=== PATIENT | female | born 1990 ===

== ENCOUNTER 2020-03-23 23:46 | Outpatient (CLI) | payer SELFPAY ==
[2020-03-24] MEDS ORDERED: ePHEDrine SULFATE 50 MG/1 ML INJ IV PRN (03:24)
[2020-03-24] MEDS ORDERED: ONDANSETRON 4 MG/2 ML INJ IV PRN (03:24)
[2020-03-24] MEDS ORDERED: ACETAMINOPHEN 325 MG TAB PO PRN (03:24)
[2020-03-24] MEDS ORDERED: BUTORPHANOL 2 MG/1 ML INJ IV PRN (03:24)
[2020-03-24] MEDS ORDERED: LIDOCAINE (2%) 20 MG/1 ML VIAL 20 ML MDV INFILTRATI ONE (03:24)
[2020-03-24] MEDS ORDERED: MINERAL OIL 30 ML ORAL LIQD PO PRN (03:24)
[2020-03-24] MEDS ORDERED: TERBUTALINE 1 MG/1 ML INJ SUB-Q PRN (03:24)
[2020-03-24] MEDS ORDERED: OXYTOCIN 20 UNIT/1000ML DRIP 20 UNITS/1,000 ML BAG IV SCH (04:00)
[2020-03-24] MEDS ORDERED: OXYTOCIN DRIP 30 UNITS/500 ML BAG IV SCH (04:00)
[2020-03-24 04:05] LABS: Hematocrit 35.1 % (30.3-42.9); Hemoglobin 12.1 gm/dl (10.1-14.3); Mean Corpuscular HGB Conc 34 % (30-34); Mean Corpuscular Volume 95 fl (79-97); Platelet Count 180 K/mm3 (140-440); Red Blood Count 3.69 M/mm3 (3.65-5.03); Red Cell Distribution Width 12.9 % (13.2-15.2)
--- NOTE | 2020-03-24 08:28 | History and Physical Report ---
History of Present Illness Date of examination: 03/24/20 Chief complaint: Pt presents today with c/o uc times several hours. Past History - Obstetrical History : 1 Medications and Allergies Allergies Allergy/AdvReac Type Severity Reaction Status Date / Time Sulfa (Sulfonamide Allergy Hives Verified 03/24/20 03:28 Antibiotics) Home Medications Medication Instructions Recorded Confirmed Last Taken Type Vitamin 1 tab PO DAILY 03/24/20 03/24/20 03/23/20 06:00 History 1 TAB Tylenol 325 mg PO DAILY 03/24/20 03/24/20 03/23/20 19:00 History Active Meds: Active Medications Acetaminophen (Tylenol) 650 mg PO Q4H PRN PRN Reason: Pain, Mild (1-3) Butorphanol Tartrate (Stadol) 2 mg IV Q2H PRN PRN Reason: Pain , Severe (7-10) Ephedrine Sulfate (Ephedrine Sulfate) 10 mg IV Q2M PRN PRN Reason: Hypotension Oxytocin/Sodium Chloride (Pitocin/Ns 30 Unit/500ml) 30 units in 500 mls @ 2 mls/hr IV TITR NIK; Protocol Lactated Ringer's (Lactated Ringers) 1,000 mls @ 125 mls/hr IV DIRECT NIK Oxytocin/Sodium Chloride (Pitocin/Ns 20 Unit/1000ml Drip) 20 units in 1,000 mls @ 125 mls/hr IV DIRECT NIK Mineral Oil (Mineral Oil) 30 ml PO QHS PRN PRN Reason: Constipation Ondansetron HCl (Zofran) 4 mg IV Q8H PRN PRN Reason: Nausea And Vomiting Terbutaline Sulfate (Brethine) 0.25 mg SUB-Q ONCE PRN PRN Reason: Hyperstimulation/Hypertonicity - Vital Signs Vital signs: Vital Signs Temp Pulse Resp BP Pulse Ox 98.8 F 79 18 114/82 96 03/24/20 00:00 03/24/20 00:00 03/24/20 00:00 03/24/20 00:00 03/24/20 00:00 Temp Pulse Resp BP Pulse Ox 97.8 F 73 16 124/71 97 03/24/20 07:33 03/24/20 07:33 03/24/20 07:33 03/24/20 07:33 03/24/20 07:23 Results Result Diagrams: 03/24/20 03:37 Abnormal lab results 03/24/20 Range/Units 03:37 MCH 33 H (28-32) pg RDW 12.9 L (13.2-15.2) % All other labs normal.
--- NOTE | 2020-03-24 08:47 | History and Physical Report ---
History of Present Illness Date of examination: 03/24/20 Date of admission: 03/24/20 Chief complaint: 29 y/o presents with c/o uc times several hours History of present illness: 29 y/o presented to [facility] with c/o uc times several hours. Pt initiated her pnc at [facility] at 8.5 wks. Preg has been uneventful and w/o complications. Pt was admitted to OB triage. She was ambulated x 1 hr then rechecked and was found to be in active labor. Pt was admitted to L&D for delivery. GBS is neg. Past History Past Medical History: no pertinent history Past Surgical History: no surgical history Family/Genetic History: cancer Social history: no significant social history - Obstetrical History Expected Date of Delivery: 04/12/20 Actual Gestation: 37 Week(s) 2 Day(s) : 1 Para: 0 Hx # Term Pregnancies: 0 Number of Pregnancies: 0 Spontaneous Abortions: 0 Induced : 0 Number of Living Children: 0 Medications and Allergies Allergies Allergy/AdvReac Type Severity Reaction Status Date / Time Sulfa (Sulfonamide Allergy Hives Verified 03/24/20 03:28 Antibiotics) Home Medications Medication Instructions Recorded Confirmed Last Taken Type Vitamin 1 tab PO DAILY 03/24/20 03/24/20 03/23/20 06:00 History 1 TAB Tylenol 325 mg PO DAILY 03/24/20 03/24/20 03/23/20 19:00 History Active Meds: Active Medications Acetaminophen (Tylenol) 650 mg PO Q4H PRN PRN Reason: Pain, Mild (1-3) Butorphanol Tartrate (Stadol) 2 mg IV Q2H PRN PRN Reason: Pain , Severe (7-10) Ephedrine Sulfate (Ephedrine Sulfate) 10 mg IV Q2M PRN PRN Reason: Hypotension Oxytocin/Sodium Chloride (Pitocin/Ns 30 Unit/500ml) 30 units in 500 mls @ 2 mls/hr IV TITR NIK; Protocol Lactated Ringer's (Lactated Ringers) 1,000 mls @ 125 mls/hr IV DIRECT NIK Oxytocin/Sodium Chloride (Pitocin/Ns 20 Unit/1000ml Drip) 20 units in 1,000 mls @ 125 mls/hr IV DIRECT NIK Mineral Oil (Mineral Oil) 30 ml PO QHS PRN PRN Reason: Constipation Ondansetron HCl (Zofran) 4 mg IV Q8H PRN PRN Reason: Nausea And Vomiting Terbutaline Sulfate (Brethine) 0.25 mg SUB-Q ONCE PRN PRN Reason: Hyperstimulation/Hypertonicity Review of Systems All systems: negative Eyes: deferred Ears, nose, mouth and throat: deferred Breasts: normal Genitourinary: normal appearance Rectal Exam: deferred - Vital Signs Vital signs: Vital Signs Temp Pulse Resp BP Pulse Ox 98.8 F 79 18 114/82 96 03/24/20 00:00 03/24/20 00:00 03/24/20 00:00 03/24/20 00:00 03/24/20 00:00 Temp Pulse Resp BP Pulse Ox 97.8 F 73 16 124/71 97 03/24/20 07:33 03/24/20 07:33 03/24/20 07:33 03/24/20 07:33 03/24/20 07:23 - Physical Exam Breasts: Positive: normal Abdomen: Positive: normal appearance, soft, normal bowel sounds, other (gravid) Genitourinary (Female): Positive: normal external genitalia, normal perenium Vulva: both: normal Vagina: Positive: normal moisture Uterus: Positive: normal size, normal contour, other (gravid) Adnexa: both: normal Anus/Rectum: Positive: normal perianal skin Extremities: Positive: normal - Obstetrical FHR: auscultation normal, category 1 Uterine Contraction Monitor Mode: External Cervical Dilatation: 4 (per nurse) Cervical Effacement Percentage: 80 (per nurse) station: -2 Uterine Contraction Pattern: Regular Uterine Tone Measurement Phase: Resting Uterine Contraction Intensity: Moderate Results Result Diagrams: 03/24/20 03:37 Abnormal lab results 03/24/20 Range/Units 03:37 MCH 33 H (28-32) pg RDW 12.9 L (13.2-15.2) % All other labs normal. Assessment and Plan A: IUP@ 37. 2 wks GBS neg CAT 1 FHT p: Admit to L&D Continuous monitoring Pain med/epidural prn Anticipate - Patient Problems (1) Term Current Visit: Yes Status: Acute
[2020-03-24] MEDS: LACTATED RINGERS 1,000 ML IV SCH ×2 (09:37→16:52)
[2020-03-24] MEDS ORDERED: PRENATAL VIT27-FE FUMARATE-FOLIC ACID VIT TAB PO SCH (10:00)
[2020-03-24 19:35] VITALS: BP 117/78
--- NOTE | 2020-03-24 19:57 | Discharge Summary ---
Providers - Providers Date of Admission: 03/24/2020 Date of discharge: 03/24/20 Attending physician: ULYSSES LANZA Primary care physician: ULYSSES LANZA Hospitalization Reason for admission: observation Discharge diagnosis: other (early labor, not delivered) Hospital course: Patient presented in possible early active labor with contractions and inital cervical exam 4-5 cm. Given on cervical change, pitocin was initiated in AM without cervix change. Rechecks more c/w early labor with exam by me . Patient not bertrand regularly. No evidence of active labor. Condition at discharge: Good Disposition: DC-01 TO HOME OR SELFCARE Plan - Provider Discharge Summary Activity: routine Diet: routine Instructions: routine Additional instructions: [] return if evidence of labor, including contractions every 5 minutes, leaking fluid, vaginal bleeding >1-2 pads per hour, decreased movement [] Smoking cessation referral if applicable(refer to patient education folder for contact #) [] Refer to [facility]'s [facility] Booklet Call your doctor immediately for: * Fever > 100.5 * Heavy vaginal bleeding ( >1 pad per hour) * Severe persistent headache * Shortness of breath * Reddened, hot, painful area to leg or breast * Drainage or odor from incision. - Follow up plan Follow up: ULYSSES LANZA MD [Primary Care Provider] - 7 Days
== END 2020-03-24 20:22 | disposition home or self-care (01) ==
LOC: TRG 23:46 → APU 23:55 → LD 03-24 07:51 → TRG 03-24 20:22
PROVIDERS: ATTEND Obstetrics & Gynecology
DX: O62.4 Hypertonic, incoordinate, and prolonged uterine contractions (principal); Z3A.38 38 weeks gestation of pregnancy
CPT/HCPCS: 36415; 85014; 85018; 85027; 86592; 86850; 86900; 86901; J2590; J7120

== ENCOUNTER 2020-04-04 08:19 | Inpatient (IN) | payer OTHER ==
[2020-04-04] MEDS ORDERED: ePHEDrine SULFATE 50 MG/1 ML INJ IV PRN ×2 (10:21→13:01)
[2020-04-04] MEDS ORDERED: LIDOCAINE (2%) 20 MG/1 ML VIAL 20 ML MDV INFILTRATI ONE ×2 (10:21→18:23)
[2020-04-04] MEDS ORDERED: ACETAMINOPHEN 325 MG TAB PO PRN (10:21)
[2020-04-04] MEDS ORDERED: TERBUTALINE 1 MG/1 ML INJ SUB-Q PRN (10:21)
[2020-04-04] MEDS ORDERED: MINERAL OIL 30 ML ORAL LIQD PO PRN (10:21)
[2020-04-04] MEDS ORDERED: LACTATED RINGERS 1,000 ML ONE (10:21)
[2020-04-04] MEDS ORDERED: fentaNYL 100 MCG/2 ML INJ IV PRN (10:21)
[2020-04-04] MEDS ORDERED: ONDANSETRON 4 MG/2 ML INJ IV PRN (10:21)
[2020-04-04] MEDS ORDERED: BUTORPHANOL 2 MG/1 ML INJ IV PRN (10:21)
--- NOTE | 2020-04-04 10:40 | History and Physical Report ---
History of Present Illness Date of examination: 04/04/20 Date of admission: 04/04/2020 Chief complaint: active labor at term History of present illness: 29yo, G1 at 38.6 wks, initiated care with [facility] at 8.5 wks gestation. Her has been uncomplicated. She presents to [facility] with reports of ctxs for past several hours that progressively worsened. She reports +FM. Denies any VB or LOF. Labs: O+, antibody negative; rubella immune; VDRL negative; HBsAg negative HIV negative; GC/Chlamydia negative; MSAPF/Multiple Markers negative; 1 hr gtt - 79; GBS negative. Past History Past Medical History: no pertinent history Past Surgical History: no surgical history Family/Genetic History: cancer (Father - kidney Ca; Aunt - Uterus Ca; Aunt - Bone Ca) Social history: , full code. denies: smoking, alcohol abuse, prescription drug abuse, IV drug use - Obstetrical History Expected Date of Delivery: 04/12/20 Actual Gestation: 38 Week(s) 6 Day(s) : 1 Para: 0 Hx # Term Pregnancies: 0 Number of Pregnancies: 0 Spontaneous Abortions: 0 Induced : 0 Number of Living Children: 0 Medications and Allergies Allergies Allergy/AdvReac Type Severity Reaction Status Date / Time Sulfa (Sulfonamide Allergy Hives Verified 03/24/20 03:28 Antibiotics) Home Medications Medication Instructions Recorded Confirmed Last Taken Type Vitamin 1 tab PO DAILY 03/24/20 03/24/20 03/23/20 06:00 History 1 TAB Tylenol 325 mg PO DAILY 03/24/20 03/24/20 03/23/20 19:00 History Active Meds: Active Medications Acetaminophen (Tylenol) 650 mg PO Q4H PRN PRN Reason: Pain, Mild (1-3) Butorphanol Tartrate (Stadol) 2 mg IV Q2H PRN PRN Reason: Pain , Severe (7-10) Ephedrine Sulfate (Ephedrine Sulfate) 10 mg IV Q2M PRN PRN Reason: Hypotension Fentanyl (Sublimaze) 100 mcg IV Q2H PRN PRN Reason: Pain,Severe (7-10) LABOR PAIN Lactated Ringer's (Lactated Ringers) 1,000 mls @ 125 mls/hr IV DIRECT NIK Oxytocin/Sodium Chloride (Pitocin/Ns 20 Unit/1000ml Drip) 20 units in 1,000 mls @ 125 mls/hr IV DIRECT NIK Mineral Oil (Mineral Oil) 30 ml PO QHS PRN PRN Reason: Constipation Ondansetron HCl (Zofran) 4 mg IV Q8H PRN PRN Reason: Nausea And Vomiting Terbutaline Sulfate (Brethine) 0.25 mg SUB-Q ONCE PRN PRN Reason: Hyperstimulation/Hypertonicity Review of Systems All systems: negative Genitourinary: contractions (painful) - Vital Signs Vital signs: Vital Signs Pulse BP 72 119/80 04/04/20 09:00 04/04/20 09:00 Temp Pulse Resp BP Pulse Ox 72 119/80 04/04/20 09:00 04/04/20 09:00 - Physical Exam Breasts: Positive: normal Cardiovascular: Regular rate Lungs: Positive: Normal air movement Abdomen: Positive: other (gravid) Uterus: Positive: enlarged (S=D) Extremities: Positive: normal Deep Tendon Reflex Grade: Normal +2 - Obstetrical FHR: category 1 Cervical Dilatation: 4 (per RN) Cervical Effacement Percentage: 90 station: -3 Uterine Contraction Pattern: Irregular Uterine Tone Measurement Phase: Resting Uterine Contraction Intensity: Mild Results All other labs normal. Assessment and Plan - Patient Problems (1) Active labor at term Current Visit: Yes Status: Acute Plan to address problem: Admit to L & D Pain meds as ordered Anticipate
[2020-04-04] MEDS ORDERED: OXYTOCIN 20 UNIT/1000ML DRIP 20 UNITS/1,000 ML BAG IV SCH (11:00)
[2020-04-04 11:04] LABS: Hematocrit 36.7 % (30.3-42.9); Mean Corpuscular HGB Conc 35 % (30-34); Mean Corpuscular Volume 95 fl (79-97); Platelet Count 193 K/mm3 (140-440); Red Blood Count 3.88 M/mm3 (3.65-5.03)
[2020-04-04] MEDS: LACTATED RINGERS 1,000 ML IV SCH ×2 (11:38→12:45)
[2020-04-04] MEDS ORDERED: NALOXONE 2 MG/2 ML INJ IV PRN (13:01)
--- NOTE | 2020-04-04 13:02 | Anesthesia Consultation ---
Anesthesia Consult and Med Hx Date of service: 04/04/20 - Airway Anesthetic Teeth Evaluation: Good ROM Head & Neck: Adequate Mental/Hyoid Distance: Adequate Mallampati Class: Class II Intubation Access Assessment: Probably Good - Pulmonary Exam CTA: Yes - Cardiac Exam Cardiac Exam: RRR - Pre-Operative Health Status ASA Pre-Surgery Classification: ASA2 Proposed Anesthetic Plan: Epidural - Pulmonary Hx Asthma: No COPD: No Hx Pneumonia: No - Cardiovascular System Hx Hypertension: No - Central Nervous System Hx Seizures: No Hx Psychiatric Problems: No - Endocrine Hx Renal Disease: No Hx End Stage Renal Disease: No Hx Hypothyroidism: No Hx Hyperthyroidism: No - Hematic Hx Anemia: No Hx Sickle Cell Disease: No - Other Systems Hx Alcohol Use: No
[2020-04-04] MEDS ORDERED: DEXMEDETOMIDINE 200 MCG/2 ML VIAL IV ONE (13:04)
--- NOTE | 2020-04-04 13:43 | Progress Note ---
Labor Epidural - Labor Epidural Start Time: 13:04 Stop Time: 13:33 Performed by:: SHWETHA NOONAN Procedure: Patient is requesting epidural for labor pain. H&P, and labs reviewed. Procedure explained, questions answered, consent obtained. Patient in sitting position with blood pressure cuff and pulse ox on and working. Timeout performed immediately before start of procedure. Sterile betadine prep/drape. 3 mL 1% lidocaine skin wheal at L[3]-L[4]. 18-gauge Touhy epidural needle advanced to [id number] with saline at [7] cm. 27-gauge spinal needle advanced until clear, free-flowing CSF. Intrathecal dexmedetomidine [5] mcg administered and needle removed. Epidural catheter advanced to [12] cm, positive heme, removed. SUSIE saline 7 cm, positive heme, again removed. SUSIE saline 7 cm 3rd time, negative aspiration for blood and csf, negative test dose 3 ml 1.5% lidocaine with epinephrine. Sterile steri-strips and tegaderm applied, followed by tape reinforcement. Patient tolerated procedure well. Nicolette MCLEOD
[2020-04-04] MEDS ORDERED: fentaNYL-BUPIV 2 MCG/ML-0.125% 200 MCG/100 ML BAG EPIDURAL SCH (14:00)
--- NOTE | 2020-04-04 14:22 | Progress Note ---
Assessment and Plan - Patient Problems (1) Active labor at term Current Visit: Yes Status: Acute Plan to address problem: AROM @1539, clear fluids, tolerated well Initiate Pitocin 1 hr after AROM if no regular ctxs as tolerated Anticipate Subjective - Subjective Date of service: 04/04/20 Principal diagnosis: active labor Interval history: 29yo, G1 at 38.6 wks, initiated care with [facility] at 8.5 wks gestation. Her has been uncomplicated. She presents to [facility] with reports of ctxs for past several hours that progressively worsened. She reports +FM. Denies any VB or LOF. Labs: O+, antibody negative; rubella immune; VDRL negative; HBsAg negative HIV negative; GC/Chlamydia negative; MSAPF/Multiple Markers negative; 1 hr gtt - 79; GBS negative. Patient reports: movement normal, contractions (comfortable with epidural), no new complaints, no loss of fluid, no vaginal bleeding Objective - Vital Signs Vital Signs: Vital Signs - 12hr 04/04/20 04/04/20 04/04/20 09:00 11:40 11:41 Temperature Pulse Rate 72 75 78 Respiratory Rate Blood Pressure 119/80 99/64 Blood Pressure [Left] O2 Sat by Pulse 97 Oximetry 04/04/20 04/04/20 04/04/20 11:42 11:46 11:55 Temperature 97.6 F Pulse Rate 75 80 79 Respiratory 17 Rate Blood Pressure Blood Pressure 95/64 [Left] O2 Sat by Pulse 97 99 99 Oximetry 04/04/20 04/04/20 04/04/20 12:00 12:05 12:10 Temperature Pulse Rate 82 79 78 Respiratory Rate Blood Pressure Blood Pressure [Left] O2 Sat by Pulse 98 98 97 Oximetry 04/04/20 04/04/20 04/04/20 12:15 12:20 12:25 Temperature Pulse Rate 78 75 72 Respiratory Rate Blood Pressure Blood Pressure [Left] O2 Sat by Pulse 98 98 98 Oximetry 04/04/20 04/04/20 04/04/20 12:30 12:35 12:40 Temperature Pulse Rate 80 72 82 Respiratory Rate Blood Pressure Blood Pressure [Left] O2 Sat by Pulse 99 99 99 Oximetry 04/04/20 04/04/20 04/04/20 12:45 12:50 12:55 Temperature Pulse Rate 78 71 78 Respiratory Rate Blood Pressure Blood Pressure [Left] O2 Sat by Pulse 99 98 99 Oximetry 04/04/20 04/04/20 04/04/20 13:00 13:05 13:10 Temperature Pulse Rate 88 86 76 Respiratory Rate Blood Pressure Blood Pressure [Left] O2 Sat by Pulse 99 99 100 Oximetry 04/04/20 04/04/20 04/04/20 13:15 13:17 13:18 Temperature Pulse Rate 83 76 112 H Respiratory Rate Blood Pressure 126/69 168/102 Blood Pressure [Left] O2 Sat by Pulse 99 92 Oximetry 04/04/20 04/04/20 04/04/20 13:20 13:23 13:25 Temperature Pulse Rate 88 85 75 Respiratory Rate Blood Pressure 141/90 138/62 Blood Pressure [Left] O2 Sat by Pulse 98 86 97 Oximetry 04/04/20 04/04/20 04/04/20 13:30 13:31 13:35 Temperature Pulse Rate 92 H 73 86 Respiratory Rate Blood Pressure 112/58 Blood Pressure [Left] O2 Sat by Pulse 96 76 L 98 Oximetry 04/04/20 04/04/20 04/04/20 13:37 13:39 13:40 Temperature Pulse Rate 83 86 95 H Respiratory Rate Blood Pressure 108/52 96/52 Blood Pressure [Left] O2 Sat by Pulse 98 Oximetry 04/04/20 04/04/20 04/04/20 13:41 13:42 13:45 Temperature Pulse Rate 106 H 91 H 86 Respiratory Rate Blood Pressure 80/53 93/58 Blood Pressure [Left] O2 Sat by Pulse 98 Oximetry 04/04/20 04/04/20 04/04/20 13:48 13:49 13:50 Temperature Pulse Rate 108 H 91 H 86 Respiratory Rate Blood Pressure 105/61 100/58 Blood Pressure [Left] O2 Sat by Pulse 98 Oximetry 04/04/20 04/04/20 04/04/20 13:54 13:55 13:57 Temperature Pulse Rate 86 112 H 107 H Respiratory Rate Blood Pressure 110/66 95/52 99/50 Blood Pressure [Left] O2 Sat by Pulse 98 Oximetry 04/04/20 04/04/20 04/04/20 13:59 14:00 14:01 Temperature Pulse Rate 80 81 76 Respiratory Rate Blood Pressure 99/60 96/56 Blood Pressure [Left] O2 Sat by Pulse 92 99 Oximetry 04/04/20 04/04/2020 14:03 14:05 14:07 Temperature Pulse Rate 89 87 86 Respiratory Rate Blood Pressure 97/60 101/55 101/62 Blood Pressure [Left] O2 Sat by Pulse 99 Oximetry 04/04/20 04/04/20 04/04/20 14:09 14:10 14:11 Temperature Pulse Rate 99 H 92 H 86 Respiratory Rate Blood Pressure 97/64 98/65 Blood Pressure [Left] O2 Sat by Pulse 98 Oximetry 04/04/20 04/04/20 14:13 14:15 Temperature Pulse Rate 96 H 92 H Respiratory Rate Blood Pressure 94/61 88/49 Blood Pressure [Left] O2 Sat by Pulse 98 Oximetry - Exam Breasts: deferred Cardiovascular: Regular rate Lungs: Normal air movement FHR: category 1 Uterine Contraction Monitor Mode: Palpation Cervical Dilatation: 7 (vertex) Cervical Effacement Percentage: 90 station: -1 Uterine Contraction Pattern: Irregular Uterine Tone Measurement Phase: Resting Uterine Contraction Intensity: Moderate - Labs Labs: Abnormal Labs 04/04/20 10:37 MCH 34 H MCHC 35 H RDW 13.0 L Laboratory Results - last 24 hr 04/04/20 04/04/20 10:37 10:37 WBC 10.3 RBC 3.88 Hgb 13.0 Hct 36.7 MCV 95 MCH 34 H MCHC 35 H RDW 13.0 L Plt Count 193 Blood Type O POSITIVE Antibody Screen Negative
[2020-04-04] MEDS ORDERED: OXYTOCIN DRIP 30 UNITS/500 ML BAG IV SCH (16:00)
[2020-04-04] MEDS ORDERED: diphenhydrAMINE 25 MG CAP PO PRN (18:46)
[2020-04-04] MEDS ORDERED: LANOLIN/ZINC/DIMETHICONE (LANSINOH) 7 GM TP PRN (18:46)
[2020-04-04] MEDS ORDERED: oxyCODONE /ACETAMINOPHEN 5-325MG TAB PO PRN (18:46)
[2020-04-04] MEDS ORDERED: MAGNESIUM HYDROXIDE (MOM) ORAL LIQD UDC PO PRN (18:46)
[2020-04-04] MEDS ORDERED: PROMETHAZINE 25 MG TAB PO PRN (18:46)
[2020-04-04] MEDS ORDERED: WITCH HAZEL/ GLYCERIN PAD TP PRN (18:46)
--- NOTE | 2020-04-04 18:53 | Procedure Note ---
OB Delivery Note - Delivery Date of Delivery: 04/04/20 (1823) Surgeon: LAURA RIVERA (CNM) Estimated blood loss: 200cc - Vaginal Delivery presentation: vertex Delivery position: OA (Direct) Delivery induction: none (1538) Delivery augmentation: rupture of membranes (AROM - 1538, clear fluids) Delivery monitor: external FHT, external uterine Route of delivery: Delivery placenta: spontaneous (1828, yasemin, disposed per policy) Delivery cord: 3 umbilical vessels Episiotomy: none Delivery laceration: other (bilateral pily-urethral tears, no repaire required, hemostasis maintained) Anesthesia: epidural Delivery comments: of viable, crying male placed directly on maternal abdomen. Cord double clamped, cut by FOB after cessation of pulsation. Placenta spontaneously delivered, yasemin, disposed per hospital policy. Uterus firm @ U-2. Bilateral pily-urethral tears, no repair required. Mother and baby safe, stable and left in care of RN. - Infant A at 1 minute: 9 at 5 minutes: 9 Gender: Male (Weight: 3006gms (6lbs 10ozs) 18 inches)
[2020-04-04] MEDS ORDERED: IBUPROFEN 600 MG TAB PO SCH (19:00)
[2020-04-05] MEDS: IBUPROFEN 600 MG TAB PO SCH ×3 (05:14→17:32)
[2020-04-05] MEDS ORDERED: DIPHtheria,PERTUSSIS(ACELL),TETANUS VACCINE/PF 0.5 ML VIAL IM ONE (06:00)
[2020-04-05 08:23] LABS: Hematocrit 29.1 % (30.3-42.9); Hemoglobin 10.1 gm/dl (10.1-14.3)
--- NOTE | 2020-04-05 11:29 | Progress Note ---
Assessment and Plan A: PP Day #1 Stable P: Follow Routine Orders D/C home today per patient request RTO in 6 Weeks Subjective - Subjective Date of service: 04/05/20 Principal diagnosis: active labor Patient reports: appetite normal, voiding normally, pain well controlled, flatus, ambulating normally [place]: doing well Objective - Vital Signs Latest vital signs: Vital Signs Temp Pulse Resp BP BP Pulse Ox 04/05/20 09:17 98.6 F 72 22 102/72 98 04/05/20 04:50 98.3 F 82 20 105/72 98 04/05/20 01:33 98.3 F 77 18 97/68 95 04/04/20 20:55 98.9 F 76 20 122/73 98 04/04/20 20:35 77 98 04/04/20 20:32 80 119/74 04/04/20 20:30 84 97 04/04/20 20:25 78 98 04/04/20 20:20 80 98 04/04/20 20:18 80 130/76 04/04/20 20:15 84 98 04/04/20 20:10 84 97 04/04/20 20:05 77 98 04/04/20 20:02 77 113/73 04/04/20 20:00 78 97 04/04/20 19:55 76 97 04/04/20 19:51 83 94 04/04/20 19:50 81 97 04/04/20 19:47 82 112/74 04/04/20 19:45 83 98 04/04/20 19:40 80 99 04/04/20 19:35 77 98 04/04/20 19:32 87 113/75 04/04/20 19:30 85 98 04/04/20 19:25 98.5 F 86 98 04/04/20 19:20 89 99 04/04/20 19:18 89 115/75 04/04/20 19:15 96 H 98 04/04/20 19:10 98.4 F 89 14 110/87 99 04/04/20 19:05 86 110/57 99 04/04/20 19:00 84 100 04/04/20 18:55 98.2 F 89 99 04/04/20 18:50 91 H 99 04/04/20 18:47 92 H 115/57 04/04/20 18:45 98.6 F 92 H 19 115/57 99 04/04/20 18:40 90 99 04/04/20 18:35 93 H 98 04/04/20 18:33 93 H 111/70 04/04/20 18:30 94 H 99 04/04/20 18:25 110 H 98 04/04/20 18:20 89 98 04/04/20 18:15 95 H 98 04/04/20 18:10 88 98 04/04/20 18:07 126 H 94 04/04/20 18:05 103 H 97 04/04/20 18:00 91 H 98 04/04/20 17:55 79 98 04/04/20 17:50 96 H 97 04/04/20 17:48 89 128/69 04/04/20 17:45 74 97 04/04/20 17:40 86 99 04/04/20 17:38 98.6 F 04/04/20 17:35 96 H 97 04/04/20 17:33 88 109/74 04/04/20 17:30 88 98 04/04/20 17:28 106 H 91 04/04/20 17:25 97 H 97 04/04/20 17:20 94 H 98 04/04/20 17:18 76 118/73 04/04/20 17:15 76 97 04/04/20 17:10 86 97 04/04/20 17:05 91 H 98 04/04/20 17:04 72 112/68 04/04/20 17:00 79 98 04/04/20 16:55 75 97 04/04/20 16:50 74 97 04/04/20 16:47 70 111/74 04/04/20 16:45 81 97 04/04/20 16:40 77 98 04/04/20 16:35 71 98 04/04/20 16:32 76 114/72 04/04/20 16:30 86 97 04/04/20 16:25 88 98 04/04/20 16:20 76 98 04/04/20 16:18 78 114/71 04/04/20 16:15 76 98 04/04/20 16:10 83 98 04/04/20 16:05 80 98 04/04/20 16:03 81 146/62 04/04/20 16:00 90 98 04/04/20 15:55 79 99 09/08/20 15:50 81 98 04/04/20 15:47 78 100/62 04/04/20 15:45 90 93/58 99 04/04/20 15:43 82 107/59 04/04/20 15:40 106 H 98 04/04/20 15:35 99 H 104/58 98 04/04/20 15:33 98 H 101/58 04/04/20 15:31 81 99/64 04/04/20 15:30 89 98 04/04/20 15:29 92 H 102/64 04/04/20 15:27 80 101/65 04/04/20 15:25 105 H 112/68 98 04/04/20 15:23 103 H 98/59 04/04/20 15:21 74 117/72 04/04/20 15:20 72 98 04/04/20 15:19 100 H 104/59 04/04/20 15:17 75 118/64 04/04/20 15:15 103 H 101/67 98 04/04/20 15:13 110 H 94/52 04/04/20 15:11 77 103/57 04/04/20 15:10 75 98 04/04/20 15:09 95 H 110/59 04/04/20 15:07 78 126/58 04/04/20 15:05 104 H 144/61 99 04/04/20 15:03 80 118/68 04/04/20 15:01 85 117/63 04/04/20 15:00 89 99 04/04/20 14:59 82 117/73 04/04/20 14:57 93 H 102/60 04/04/20 14:55 83 111/70 99 04/04/20 14:53 82 112/71 04/04/20 14:51 96 H 120/74 04/04/20 14:50 86 99 04/04/20 14:49 71 114/67 04/04/20 14:47 86 126/76 04/04/20 14:45 114 H 100/55 98 04/04/20 14:43 116 H 97/54 04/04/20 14:41 92 H 102/56 04/04/20 14:40 94 H 98 04/04/20 14:39 100 H 98/56 04/04/20 14:37 89 111/66 09/08/20 14:35 117 H 98 04/04/20 14:34 110 H 110/58 04/04/20 14:32 109 H 232/142 04/04/20 14:30 73 99 04/04/20 14:29 74 123/67 04/04/20 14:27 111 H 93/62 04/04/20 14:25 93 H 105/66 99 04/04/20 14:23 86 103/64 04/04/20 14:21 109 H 85/51 04/04/20 14:20 103 H 97 04/04/20 14:19 93 H 100/64 04/04/20 14:17 75 94/51 04/04/20 14:15 92 H 88/49 98 04/04/20 14:13 96 H 94/61 04/04/20 14:11 86 98/65 04/04/20 14:10 92 H 98 04/04/20 14:09 99 H 97/64 04/04/20 14:07 86 101/62 04/04/20 14:05 87 101/55 99 04/04/20 14:03 89 97/60 04/04/20 14:01 76 96/56 04/04/20 14:00 81 99/60 99 04/04/20 13:59 80 92 04/04/20 13:57 107 H 99/50 04/04/20 13:55 112 H 95/52 98 04/04/20 13:54 86 110/66 04/04/20 13:50 86 98 04/04/20 13:49 91 H 100/58 04/04/20 13:48 108 H 105/61 04/04/20 13:45 86 98 04/04/20 13:42 91 H 93/58 04/04/20 13:41 106 H 80/53 04/04/20 13:40 95 H 98 04/04/20 13:39 86 96/52 04/04/20 13:37 83 108/52 04/04/20 13:35 86 112/58 98 04/04/20 13:31 73 76 L 04/04/20 13:30 92 H 96 04/04/20 13:25 75 138/62 97 04/04/20 13:23 85 141/90 86 04/04/20 13:20 88 98 04/04/20 13:18 112 H 168/102 04/04/20 13:17 76 92 04/04/20 13:15 83 126/69 99 04/04/20 13:10 76 100 04/04/20 13:05 86 99 04/04/20 13:00 88 99 04/04/20 12:55 78 99 04/04/20 12:50 71 98 04/04/20 12:45 78 99 04/04/20 12:40 82 99 04/04/20 12:35 72 99 04/04/20 12:30 80 99 04/04/20 12:25 72 98 04/04/20 12:20 75 98 04/04/20 12:15 78 98 04/04/20 12:10 78 97 04/04/20 12:05 79 98 04/04/20 12:00 82 98 04/04/20 11:55 79 99 04/04/20 11:46 80 99 04/04/20 11:42 97.6 F 75 17 95/64 97 04/04/20 11:41 78 97 04/04/20 11:40 75 99/64 Intake and Output 04/04/20 04/05/20 04/05/20 22:59 06:59 14:59 Intake Total 1.033 120 360 Output Total 400 850 Balance -398.967 -730 360 Intake: IV 1.033 PITOCin/NS 30 UNIT/500ML 1.033 30 units In 500 ml @ 2 MILLIUNITS/MIN 2 mls/hr IV TITR NIK Rx#:[id number] Oral 120 120 Intake, Free Water 240 Output: Urine 400 850 Indwelling Catheter 400 Void 850 Other: Total, Intake Amount 120 120 Total, Output Amount 400 500 # Voids Void 1 Estimated Blood Loss 200 - Exam Breasts: Present: normal Cardiovascular: Present: Regular rate Lungs: Present: Clear to auscultation, Normal air movement Abdomen: Present: normal appearance, soft, normal bowel sounds Uterus: Present: normal, firm, fundal height below umbilicus Extremities: Present: normal - Labs Labs: Abnormal lab results 04/05/20 Range/Units 07:55 Hct 29.1 L D (30.3-42.9) %
--- NOTE | 2020-04-05 11:31 | Discharge Summary ---
Providers - Providers Date of Admission: 04/04/20 18:59 Date of discharge: 04/05/20 Attending physician: AURORA GARRETT MD 04/04/20 18:47 Consult to Trouble Clerk [CONS] Routine Reason For Exam: assistance with , SNS Primary care physician: ULYSSES LANZA Hospitalization Reason for admission: active labor Delivery: Episiotomy: none Laceration: none Other procedures: none complications: none Discharge diagnosis: IUP at term delivered baby: male Condition at discharge: Good Disposition: DC-01 TO HOME OR SELFCARE Plan - Provider Discharge Summary Activity: routine, no sex for 6 weeks, no heavy lifting 4 weeks, no strenuous exercise Diet: routine Instructions: routine Additional instructions: [] Smoking cessation referral if applicable(refer to patient education folder for contact #) [] Refer to [facility]'s [facility] Booklet Call your doctor immediately for: * Fever > 100.5 * Heavy vaginal bleeding ( >1 pad per hour) * Severe persistent headache * Shortness of breath * Reddened, hot, painful area to leg or breast * Drainage or odor from incision. * Keep incision clean and dry at all times and follow doctor's instructions regarding bathing/showering - Follow up plan Follow up: ULYSSES LANZA MD [Primary Care Provider] - 6 Weeks
[2020-04-05 16:03] VITALS: BP 96/61
--- NOTE | 2020-04-05 19:48 | Post Anesthesia Evaluation ---
- Post Anesthesia Evaluation Patient Participated: Yes Airway Patent: Yes Stable Respiratory Function: Yes Nausea/Vomiting: No Temp > 96.8F: Yes Pain Manageable: Yes Adequeate Hydration: Yes Anesthesia Complications: No Block Receding Appropriately: Yes
== END 2020-04-05 19:30 | disposition home or self-care (01) | DRG 807 ==
LOC: APU 08:19 → TRG 08:19 → LD 11:02 → TRG 18:57 → LD 18:59 → OB 20:48
PROVIDERS: ADMIT Obstetrics & Gynecology; ATTEND Obstetrics & Gynecology
PROC: 10E0XZZ Delivery of Products of Conception, External Approach (ICD-10-PCS; principal; 2020-04-04)
PROC: 3E0R3BZ Introduction of Anesthetic Agent into Spinal Canal, Percutaneous Approach (ICD-10-PCS; 2020-04-04)
PROC: 00HU33Z Insertion of Infusion Device into Spinal Canal, Percutaneous Approach (ICD-10-PCS; 2020-04-04)
PROC: 10907ZC Drainage of Amniotic Fluid, Therapeutic from Products of Conception, Via Natural or Artificial Opening (ICD-10-PCS; 2020-04-04)
PROC: 3E0234Z Introduction of Serum, Toxoid and Vaccine into Muscle, Percutaneous Approach (ICD-10-PCS; 2020-04-05)
DX: O71.5 Other obstetric injury to pelvic organs (principal); Z37.0 Single live birth; Z3A.38 38 weeks gestation of pregnancy; Z23 Encounter for immunization; Z88.2 Allergy status to sulfonamides
CPT/HCPCS: 36415; 85014; 85018; 85027; 86850; 86900; 86901; 90471; 90715; G0378; J2590; J3490; J7120